=== PATIENT | female | born 1970 | race Caucasian/White ===

== ENCOUNTER 2022-08-08 08:40 | Emergency (ER) | payer BC, OTHER, SELFPAY ==
[2022-08-08 08:48] VITALS: BP 111/77; PULSE 89; RESP 16; TEMP 37.5; O2SAT 100
--- NOTE | 2022-08-08 09:15 | ED.URI ---
HPI - URI/Sore Throat General Chief Complaint: Upper Respiratory Infection Stated Complaint: SORE THROAT Time Seen by Provider: 08/08/22 09:15 History of Present Illness HPI Narrative: 51-year-old female presented for complaint of sore throat for 2 days. She endorses associated headache, mild sinus congestion and chills last night. Has not taken anything for symptoms. Denies sick contacts. Denies shortness of breath, wheezing, nausea, vomiting, diarrhea or fever. Related Data Home Medications Medication Instructions Recorded Confirmed cabergoline 0.5 mg tablet 0.5 mg PO DAILY 08/08/22 08/08/22 Allergies Allergy/AdvReac Type Severity Reaction Status Date / Time No Known Allergies Allergy Verified 08/08/22 08:58 Review of Systems Review of Systems: per HPI Exam Narrative: GENERAL: well-appearing, no acute distress. EYES: conjunctivae clear ENT: Mucous membranes moist. TMs pearly regalado with normal light reflex bilaterally; no tragal tenderness. Oropharynx erythematous Tonsils enlarged 2+ with exudate. No drooling, no hoarseness, no trismus, uvula midline. No tripod positioning, hot potato voice, or soft palate swelling. NECK: Supple. No lymphadenopathy CHEST: Clear to auscultation, breath sounds equal. HEART: Regular rate and rhythm. No murmur heard. SKIN: Warm, dry, no rash. NEURO: Alert and oriented x3. Course Course Emergency Course: Patient is aware of diagnosis, understands and agrees to treatment plan. Anticipatory guidance given. Patient agrees to follow-up as directed and is aware of reasons to seek care at the emergency department. Portions of this record may have been created with voice recognition software Level of Care: Express Care Visit Vital Signs Vital signs: Vital Signs Temperature 99.5 F 08/08/22 08:48 Pulse Rate 89 08/08/22 08:48 Respiratory Rate 16 08/08/22 08:48 Blood Pressure 111/77 08/08/22 08:48 Pulse Oximetry 100 08/08/22 08:48 Temperature 99.5 F 08/08/22 08:48 Pulse Rate 89 08/08/22 08:48 Respiratory Rate 16 08/08/22 08:48 Blood Pressure 111/77 08/08/22 08:48 Pulse Oximetry 100 08/08/22 08:48 MDM - URI/Sore Throat MDM Narrative Medical decision making narrative: strep result reviewed with pt. Advise supportive treatments. Patient is appropriate for outpatient treatment and follow-up. Differential Diagnosis Differential diagnosis: Likely upper respiratory infection, viral infection and pharyngitis Lab Data Labs: Strep Screen Positive Group A Strep *(Reference Range: Negative)* Discharge Plan Discharge Clinical Impression: Strep pharyngitis Patient Disposition: Home, Self-Care Condition: Stable Instructions: Antibiotic Form, Strep Throat (ED) Additional Instructions: - Take the antibiotic as directed. Fever and sore throat typically resolve within one to three days. Most patients can return to work after 12 to 24 hours of antibiotic therapy, provided you are fever free and otherwise well. -Eat and drink things that are easy to swallow, like soft foods, cool liquids, tea with honey, or popsicles . -Salt water gargles and/or may use topical anesthetic ( Chloraseptic spray) or lozenges to relieve dryness or throat pain -Alternate Tylenol and ibuprofen as needed for pain and fever as directed. -Frequent hand washing or hand security operations center analyst is one of the best ways to prevent spread of infection. Throw away the toothbrush after 24hours of antibiotic. -Follow up with primary care provider in 2-3 days if condition is not improving -Go to the ER if you have trouble breathing, cannot drink enough fluids, have muffled voice or drooling, difficulty opening your mouth, or severe swelling. Prescriptions: New amoxicillin 500 mg tablet 1,000 mg PO DAILY 10 Days Qty: 20 0RF No Action cabergoline 0.5 mg tablet 0.5 mg PO DAILY Follow-up/[facility]
== END 2022-08-08 09:20 | disposition home or self-care (01) ==
LOC: EXPGOSH 09:28
PROVIDERS: Emergency Provider Nurse Practitioner Family; PCP Family Medicine
DX: J02.0 Streptococcal pharyngitis (principal)
CPT/HCPCS: 87880; 99203; G0463